=== PATIENT | female | born 1960 | race Caucasian/White ===

== ENCOUNTER 2018-08-21 11:36 | Emergency (ER) | payer OTHER ==
[2018-08-21] MEDS ORDERED: D50W 25 GM/50 ML SYRINGE IV ONE (11:55)
[2018-08-21 12:00] LABS: Absolute Lymphocytes (CBC) 1.9 K/uL (0.7-4.9); Absolute Monocytes 0.5 K/uL (0.1-1.3); Absolute Neutrophil 5.7 K/uL (1.8-8.0); Basophils % 0.9 % (0-1.3); Eosinophils % 2.7 % (0-4.4); Hematocrit 43.9 % (36.0-45.0); Lymphocytes % 22.1 % (15.3-44.8); MCH 29.2 pg (27.0-35.0); MCV 86.4 fL (80-100); Monocytes % 5.7 % (3.3-12.3); RBC Red Blood Cell Count 5.08 M/uL (3.86-4.86)
[2018-08-21 12:03] LABS: Protime INR 0.97
[2018-08-21 12:19] LABS: ALT/SGPT 29 U/L (12-78); AST/SGOT 33 U/L (15-37); Alkaline Phosphatase 146 U/L (45-117); BUN Blood Urea Nitrogen 17 mg/dL (7-18); Bicarbonate 24 mmol/L (21-32); Bilirubin Direct 0.1 mg/dL (0-0.2); Bilirubin Total 0.5 mg/dL (0.2-1.0); Glucose Level 80 mg/dL (74-106); Magnesium 2.1 mg/dL (1.8-2.4); Potassium 3.3 mmol/L (3.5-5.1); Protein, Total 7.8 g/dL (6.4-8.2); Sodium Level 142 mmol/L (136-145); Troponin (Emerg Dept Use Only) < 0.02 ng/mL (0.0-0.045)
--- NOTE | 2018-08-21 12:30 | RAD REPORT ---
EXAM DESCRIPTION: Caty Single View08/21/2018 12:04 pm CLINICAL HISTORY: sob COMPARISON: none FINDINGS: The lungs appear clear of acute infiltrate. The heart is normal size Battery pack overlies the left chest IMPRESSION: No acute abnormalities displayed
[2018-08-21] MEDS ORDERED: POTASSIUM CL SA 10 MEQ TAB PO ONE (13:04)
--- NOTE | 2018-08-21 13:21 | ER ---
Nurse's Notes [facility] Name: Georgie Morgan Age: 58 yrs Sex: Female : 1960 Arrival Date: 08/21/2018 Time: 11:37 Bed 3 Private MD: Diagnosis: Hypoglycemia, unspecified;Seizures (non epileptic) Presentation: 08/21 11:38 Presenting complaint: EMS states: [facility] SAID SHE WENT BLANK AND THEN THEY LOWERED bp HER TO THE GROUND. Transition of care: patient was not received from another setting of care. Onset of symptoms was August 21, 2018 at 10:45. Risk Assessment: Do you want to hurt yourself or someone else? Patient reports no desire to harm self or others. Initial Sepsis Screen: Does the patient meet any 2 criteria? No. Patient's initial sepsis screen is negative. Does the patient have a suspected source of infection? No. Patient's initial sepsis screen is negative. Care prior to arrival: Glucose check: 77. 11:38 Method Of Arrival: EMS: [facility] bp 11:38 Acuity: HEBER 3 bp Triage Assessment: 11:40 General: Appears in no apparent distress. comfortable, obese, Behavior is cooperative, bp appropriate for age, anxious. Pain: Denies pain. EENT: No deficits noted. Neuro: Level of Consciousness is awake, alert, obeys commands, Oriented to person, place, time, situation, Appropriate for age. Cardiovascular: Rhythm is sinus rhythm. Respiratory: Airway is patent Respiratory effort is even, unlabored, Respiratory pattern is regular, symmetrical. GI: Reports nausea. Musculoskeletal: Circulation, motion, and sensation intact. Range of motion: intact in all extremities. 11:40 : No signs and/or symptoms were reported regarding the genitourinary system. Derm: No bp deficits noted. Historical: - Allergies: 11:40 Sulfa (Sulfonamide Antibiotics); bp - Home Meds: 11:40 Unable to obtain [Active]; bp - PMHx: 11:40 Hypertension; Seizures; bp - Immunization history:: Adult Immunizations up to date. - Social history:: Smoking status: Patient/guardian denies using tobacco. - Ebola Screening: : Patient negative for fever greater than or equal to 101.5 degrees Fahrenheit, and additional compatible Ebola Virus Disease symptoms Patient denies exposure to infectious person Patient denies travel to an Ebola-affected area in the 21 days before illness onset No symptoms or risks identified at this time. Screenin:52 Abuse screen: Denies threats or abuse. Denies injuries from another. Nutritional bp screening: No deficits noted. Tuberculosis screening: No symptoms or risk factors identified. Fall Risk Fall in past 12 months (25 points). Secondary diagnosis (15 points) seizures, IV access (20 points). Ambulatory Aid- None/Bed Rest/Nurse Assist (0 pts). Gait- Normal/Bed Rest/Wheelchair (0 pts) Mental Status- Oriented to own ability (0 pts). Total Cardona Fall Scale indicates High Risk Score (45 or more points). Fall prevention measures have been instituted. Side Rails Up X 2 Placed Close to Nursing Station Frequent Obs/Assessments Occuring Family Present and informed to notify staff if the need to leave the bedside As available patient and family educated on Fall Prevention Program and Strategies. Assessment: 11:47 General: Appears in no apparent distress. comfortable, obese, Behavior is cooperative, bp appropriate for age, anxious. Pain: Denies pain. Neuro: Level of Consciousness is awake, alert, obeys commands, Oriented to person, place, time, situation, Appropriate for age. Cardiovascular: No deficits noted. Respiratory: Airway is patent is compromised Respiratory effort is even, unlabored, Respiratory pattern is regular, symmetrical. : No signs and/or symptoms were reported regarding the genitourinary system. EENT: No deficits noted. Derm: No deficits noted. Musculoskeletal: Circulation, motion, and sensation intact. Range of motion: intact in all extremities. Vital Signs: 11:44 BP 116 / 91; Pulse 90; Resp 20; Temp 97.7; Pulse Ox 100% ; Weight 90.72 kg; Height 5 bp ft. 7 in. (170.18 cm); 12:48 BP 154 / 82; Pulse 81; Resp 16; Pulse Ox 100% ; bp 13:45 BP 141 / 82; Pulse 86; Resp 15; Pulse Ox 98% on R/A; Pain 0/10; ss 11:44 Body Mass Index 31.32 (90.72 kg, 170.18 cm) bp Patti Coma Score: 11:40 Eye Response: spontaneous(4). Verbal Response: oriented(5). Motor Response: obeys bp commands(6). Total: 15. ED Course: 11:37 Patient arrived in ED. bp 11:39 Enrique Yao MD is Attending Physician. kdr 11:39 Triage completed. bp 11:43 Pete Magaña PA is PHCP. sha 11:44 Arm band placed on left wrist. bp 11:46 Jonel Dawn, RN is Primary Nurse. bp 11:52 Patient has correct armband on for positive identification. Fall risk band placed. bp Placed in gown. Bed in low position. Call light in reach. Side rails up X2. Adult w/ patient. 11:54 Inserted saline lock: 20 gauge in right antecubital area, using aseptic technique. bp Blood collected. 12:01 XRAY Chest (1 view) In Process Unspecified. EDMS 13:55 No provider procedures requiring assistance completed. IV discontinued, intact, ss bleeding controlled, No redness/swelling at site. Pressure dressing applied. Administered Medications: 11:50 Drug: D50W 25 ml Route: IVP; Site: right antecubital; bp 12:07 Follow up: Response: No adverse reaction; Marked relief of symptoms bp 12:59 Drug: Potassium Chloride 20 mEq Route: PO; bp Point of Care Testing: Blood Glucose: 11:47 Blood Glucose: 45 mg/dL; bp 12:48 Blood Glucose: 79 mg/dL; bp Ranges: Outcome: 13:20 Discharge ordered by MD. dalton 13:55 Discharged to home ambulatory, with family. ss 13:55 Condition: good 13:55 Discharge instructions given to patient, family, Instructed on discharge instructions, follow up and referral plans. Demonstrated understanding of instructions, follow-up care. 13:56 Patient left the ED. ss Signatures: Dispatcher [employer] EDMS Enrique Yao MD MD [facility] Nicolasa Russell RN RN ss Pete Magaña PA PA jrJonel Pena, RN RN bp
--- NOTE | 2018-08-21 13:21 | EDPHYS ---
Physician Documentation [facility] Name: Georgie Morgan Age: 58 yrs Sex: Female : 1960 Arrival Date: 08/21/2018 Time: 11:37 Bed 3 Private MD: ED Physician Enrique Yao HPI: 08/21 13:17 This 58 yrs old Female presents to ER via EMS with complaints of Probable jr8 Seizure. 13:17 The patient presents after having a single isolated seizure, that lasted 30 second(s). jr8 Character of seizure(s): Loss of consciousness: the patient experienced loss of consciousness, Motor activity: generalized. Seizure onset: just prior to arrival. Current symptoms: confusion. The patient has experienced similar episodes in the past, several times. The patient has not recently seen a physician. Patient with recent seizure history. Has been worked up by physician. Stated that this will occur when her glucose gets too low . Historical: - Allergies: 11:40 Sulfa (Sulfonamide Antibiotics); bp - Home Meds: 11:40 Unable to obtain [Active]; bp - PMHx: 11:40 Hypertension; Seizures; bp - Immunization history:: Adult Immunizations up to date. - Social history:: Smoking status: Patient/guardian denies using tobacco. - Ebola Screening: : Patient negative for fever greater than or equal to 101.5 degrees Fahrenheit, and additional compatible Ebola Virus Disease symptoms Patient denies exposure to infectious person Patient denies travel to an Ebola-affected area in the 21 days before illness onset No symptoms or risks identified at this time. ROS: 13:17 Eyes: Negative for injury, pain, redness, and discharge, ENT: Negative for injury, jr8 pain, and discharge, Neck: Negative for injury, pain, and swelling, Cardiovascular: Negative for chest pain, palpitations, and edema, Respiratory: Negative for shortness of breath, cough, wheezing, and pleuritic chest pain, Abdomen/GI: Negative for abdominal pain, nausea, vomiting, diarrhea, and constipation, Back: Negative for injury and pain, MS/Extremity: Negative for injury and deformity, Skin: Negative for injury, rash, and discoloration. 13:17 Neuro: Positive for seizure activity. Exam: 12:17 Eyes: Pupils equal round and reactive to light, extra-ocular motions intact. Lids and jr8 lashes normal. Conjunctiva and sclera are non-icteric and not injected. Cornea within normal limits. Periorbital areas with no swelling, redness, or edema. ENT: Nares patent. No nasal discharge, no septal abnormalities noted. Tympanic membranes are normal and external auditory canals are clear. Oropharynx with no redness, swelling, or masses, exudates, or evidence of obstruction, uvula midline. Mucous membranes moist. Neck: Trachea midline, no thyromegaly or masses palpated, and no cervical lymphadenopathy. Supple, full range of motion without nuchal rigidity, or vertebral point tenderness. No Meningismus. Cardiovascular: Regular rate and rhythm with a normal S1 and S2. No gallops, murmurs, or rubs. Normal PMI, no JVD. No pulse deficits. Respiratory: Lungs have equal breath sounds bilaterally, clear to auscultation and percussion. No rales, rhonchi or wheezes noted. No increased work of breathing, no retractions or nasal flaring. Abdomen/GI: Soft, non-tender, with normal bowel sounds. No distension or tympany. No guarding or rebound. No evidence of tenderness throughout. Back: No spinal tenderness. No costovertebral tenderness. Full range of motion. Skin: Warm, dry with normal turgor. Normal color with no rashes, no lesions, and no evidence of cellulitis. MS/ Extremity: Pulses equal, no cyanosis. Neurovascular intact. Full, normal range of motion. Neuro: Awake and alert, GCS 15, oriented to person, place, time, and situation. Cranial nerves II-XII grossly intact. Motor strength 5/5 in all extremities. Sensory grossly intact. Cerebellar exam normal. Normal gait. Patient postictal 12:17 ECG was reviewed by the Attending Physician. Vital Signs: 11:44 BP 116 / 91; Pulse 90; Resp 20; Temp 97.7; Pulse Ox 100% ; Weight 90.72 kg; Height 5 bp ft. 7 in. (170.18 cm); 12:48 BP 154 / 82; Pulse 81; Resp 16; Pulse Ox 100% ; bp 13:45 BP 141 / 82; Pulse 86; Resp 15; Pulse Ox 98% on R/A; Pain 0/10; ss 11:44 Body Mass Index 31.32 (90.72 kg, 170.18 cm) bp Patti Coma Score: 11:40 Eye Response: spontaneous(4). Verbal Response: oriented(5). Motor Response: obeys bp commands(6). Total: 15. MDM: 12:01 Patient medically screened. [facility] 13:17 Data reviewed: vital signs, nurses notes, lab test result(s), EKG. Data interpreted: jr8 Pulse oximetry: on room air is 100 %. Interpretation: normal. Counseling: I had a detailed discussion with the patient and/or guardian regarding: the historical points, exam findings, and any diagnostic results supporting the discharge/admit diagnosis, lab results, the need for outpatient follow up, a family practitioner, to return to the emergency department if symptoms worsen or persist or if there are any questions or concerns that arise at home. Response to treatment: the patient's symptoms have resolved after treatment. ED course: Patient back to baseline and feeling much better after eating. Glucose originally 45. Counseled patient on glucose monitoring and will f/u with her private physician. 08/21 11:44 Order name: Basic Metabolic Panel [facility] 08/21 11:44 Order name: CBC with Diff; Complete Time: 12:01 [facility] 08/21 11:44 Order name: LFT's; Complete Time: 12:46 [facility] 08/21 11:44 Order name: Magnesium; Complete Time: 12:46 [facility] 08/21 11:44 Order name: PT-INR; Complete Time: 12:46 [facility] 08/21 11:44 Order name: Troponin (emerg Dept Use Only); Complete Time: 12:46 [facility] 08/21 11:44 Order name: XRAY Chest (1 view); Complete Time: 12:46 [facility] 08/21 11:44 Order name: EKG; Complete Time: 11:45 [facility] 08/21 11:45 Order name: Basic Metabolic Panel; Complete Time: 12:46 EDMS 08/21 11:48 Order name: Glucose, Ancillary Testing [facility] 08/21 11:44 Order name: Cardiac monitoring; Complete Time: 11:56 [facility] 08/21 11:44 Order name: EKG - Nurse/Tech; Complete Time: 12:17 [facility] 08/21 11:44 Order name: IV Saline Lock; Complete Time: 11:56 [facility] 08/21 11:44 Order name: Labs collected and sent; Complete Time: 11:56 08/21 11:44 Order name: O2 Per Protocol; Complete Time: 11:56 08/21 11:44 Order name: O2 Sat Monitoring; Complete Time: 11:57 08/21 11:45 Order name: Glucose Level; Complete Time: :56 08/21 11:48 Order name: Diet Regular; Complete Time: 11:49 8 EC:17 Rate is 85 beats/min. Rhythm is regular, Normal Sinus Rhythm. QRS [place] is Normal. CT jr8 interval is normal at 146 msec. QRS interval is normal at 88 msec. QT interval is normal at 445 msec. No Q waves. T waves are Normal. No ST changes noted. Clinical impression: Normal ECG. Interpreted by me. Reviewed by me. Administered Medications: 11:50 Drug: D50W 25 ml Route: IVP; Site: right antecubital; bp 12:07 Follow up: Response: No adverse reaction; Marked relief of symptoms bp 12:59 Drug: Potassium Chloride 20 mEq Route: PO; bp Point of Care Testing: Blood Glucose: 11:47 Blood Glucose: 45 mg/dL; bp 12:48 Blood Glucose: 79 mg/dL; bp Ranges: Critical Glucose Levels:Adult <50 mg/dl or >400 mg/dl <40 mg/dl or >180 mg/dl Disposition: 15:24 Co-signature as Attending Physician, Enrique Yao MD I agree with the assessment and kdr plan of care. Disposition: 08/21/18 13:20 Discharged to Home. Impression: Hypoglycemia, unspecified, Seizures (non epileptic). - Condition is Stable. - Discharge Instructions: Hypoglycemia, Blood Glucose Monitoring, Adult. - Medication Reconciliation Form, Thank You Letter, Antibiotic Education, Prescription Opioid Use form. - Follow up: Private Physician; When: 2 - 3 days; Reason: Recheck today's complaints, Continuance of care, Re-evaluation by your physician. - Problem is new. - Symptoms have improved. Signatures: Dispatcher [employer] Enrique Milligan MD MD [facility] Nicolasa Russell RN RN ePte Magaña PA PA jr8 Jonel Dawn RN RN bp Corrections: (The following items were deleted from the chart) 11:59 11:45 ETHANOL+C.LAB.BRZ ordered. [facility] EDMS 11:59 11:45 URINE DRUG SCREEN+CHEM UR.LAB.BRZ ordered. [facility] 13:56 13:20 08/21/2018 13:20 Discharged to Home. Impression: Hypoglycemia, unspecified; ss Seizures (non epileptic). Condition is Stable. Forms are Medication Reconciliation Form, Thank You Letter, Antibiotic Education, Prescription Opioid Use. Follow up: Private Physician; When: 2 - 3 days; Reason: Recheck today's complaints, Continuance of care, Re-evaluation by your physician. Problem is new. Symptoms have improved. jr8
--- NOTE | 2018-08-22 17:35 | EKG ---
Test Date: 2018-08-21 Test Time: 12:12:39 Anchor Tack Puller: YANCY MEASUREMENT RESULTS: Intervals: Rate: 85 ME: 146 QRSD: 88 QT: 374 QTc: 445 [place]: P: 57 ME: 146 QRS: 64 T: 76 INTERPRETIVE STATEMENTS: Normal sinus rhythm Normal ECG No previous ECG available for comparison Electronically Signed On 08-22-18 17:33:40 CDT by Charlie Andres
== END 2018-08-21 13:56 | disposition home or self-care (01) ==
LOC: ER 11:36
DX: R56.9 Unspecified convulsions (principal); I10 Essential (primary) hypertension; Z88.2 Allergy status to sulfonamides
CPT/HCPCS: 36415; 71045; 80048; 80076; 82962; 83735; 84484; 85025; 85610; 93005; 96374; 99284